=== PATIENT | female | born 1960 | race Caucasian/White ===

== ENCOUNTER 2019-09-03 18:38 | Inpatient (IN) | payer OTHER, SELFPAY ==
[~2019-09-03 18:38] MED LIST: Iopamidol-370 76% 500 ML 1 ML ONE
[2019-09-03 19:06] LABS: #Basophils 0.1 thou/uL (0.0-0.2); #Lymphocytes 1.8 thou/uL (1.20-3.40); #Monocytes 0.6 thou/uL (0.11-0.59); #Neutrophils 5.2 thou/uL (1.40-6.50); %Basophils 0.6 % (0.0-1.0); %Eosinophils 0.4 % (0.0-10.0); %Lymphocytes 23.4 % (21.0-51.0); %Monocytes 8.1 % (0.0-10.0); %Neutrophils 67.5 % (42.0-75.0); Hemoglobin 13.1 g/dL (12.0-16.0); Mean Corpuscular HGB CONC 33.5 g/dL (32.0-36.0); Mean Corpuscular Hemoglobin 29.1 pg (27.0-31.0); Mean Corpuscular Volume 86.9 fL (78.0-98.0); Mean Platelet Volume 6.3 fL (7.4-10.4); Platelet Count 273 thou/uL (130-400); RBC Distribution Width 11.9 % (11.5-14.5); Red Blood Cell (RBC) Count 4.51 mill/uL (4.20-5.40); White Blood Cell (WBC) Count 7.8 thou/uL (4.8-10.8)
[2019-09-03 19:11] LABS: INR-International Normal Ratio 0.9; PTT 25.6 SEC (22.9-36.1); Prothrombin Time 12.5 SEC (12.0-14.7)
[2019-09-03 19:21] LABS: BHCG - Serum Negative (NEGATIVE); Pregs Control Background? CLEAR/WHITE (CLR/WHITE); Pregs Control Bar Appear? YES (CONTROL BAR)
[2019-09-03 19:25] LABS: ALT (SGPT) 18 U/L (8-55); AST (SGOT) 18 U/L (5-34); Albumin 4.4 g/dL (3.5-5.0); Alcohol 105 mg/dL (Less than 10); Alkaline Phosphatase 56 U/L (40-110); Anion Gap 13 mmol/L (10-20); BUN (Urea Nitrogen) 14 mg/dL (9.8-20.1); Bilirubin, Total 0.4 mg/dL (0.2-1.2); Calc. Creatinine Clearance 0 mL/min (70-130); Calcium 9.3 mg/dL (7.8-10.44); Carbon Dioxide 22 mmol/L (22-29); Chloride 107 mmol/L (98-107); Estimated GFR-MDRD Greater than 90; Globulin 2.6 g/dL (2.4-3.5); Glucose 110 mg/dL (70-105); Potassium 3.4 mmol/L (3.5-5.1); Sodium 139 mmol/L (136-145)
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
[2019-09-03] MEDS ORDERED: Ondansetron PF 4 MG/2 ML Vial ONE (19:51)
[2019-09-03] MEDS ORDERED: Morphine 4 MG/ML VIAL ONE (19:51)
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
[2019-09-03] MEDS ORDERED: Adacel (T-DAP) 0.5 ML SYRINGE ONE (20:02)
[2019-09-03 20:25] LABS: Magnesium 1.8 mg/dL (1.6-2.6); Phosphorus 2.4 mg/dL (2.3-4.7)
[2019-09-03] MEDS ORDERED: Dextrose 50% Abboject 50 ML SYRINGE SLOW IVP PRN (20:30)
[2019-09-03] MEDS ORDERED: Dextrose 5% in Water 1,000 ML IV PRN (20:30)
[2019-09-03] MEDS ORDERED: hydrALAZINE 20 MG/ML VIAL SLOW IVP PRN (20:30)
[2019-09-03] MEDS ORDERED: Ondansetron PF 4 MG/2 ML Vial IVP PRN (20:30)
[2019-09-03] MEDS ORDERED: Magnesium 2 GM/50 ML 2 GM in Premix Bag 1 BAG IVPB SCH (20:45)
[2019-09-03] MEDS ORDERED: Potassium Phosphate 15 MMOL in Sodium Chloride 0.9% 250 ML 250 ML IVPB SCH (20:45)
[2019-09-03] MEDS ORDERED: Famotidine/PF 20 mg/2ml Vial SLOW IVP SCH (21:00)
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
[2019-09-03] MEDS ORDERED: Lidocaine 1% (PF) 30 ML VIAL SC SCH (22:15)
[2019-09-03] MEDS: Morphine 2 MG/ML SYRINGE SLOW IVP PRN (22:16)
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
[2019-09-03] MEDS: Sodium Chloride 0.9% 1,000 ML IV SCH (22:18)
[2019-09-03] MEDS: Acetaminophen 500 MG TAB PO SCH (23:16)
[2019-09-04] MEDS: Morphine 2 MG/ML SYRINGE SLOW IVP PRN ×3 (00:10→05:05)
[2019-09-04 00:52] VITALS: BMI 25.2
[2019-09-04 02:49] LABS: Amphetamine Detected (NotDetected); Barbiturates Screen Not Detected (NotDetected); Benzodiazepine Screen Not Detected (NotDetected); Cocaine Metabolite Screen Not Detected (NotDetected); Medtox Control Line Valid? VALID (VALID); Medtox Reader # READER 4; Methadone Not Detected (NotDetected); Methamphetamine Not Detected (NotDetected); Opiate Screen Not Detected (NotDetected); Oxycodone Screen Not Detected (NotDetected); Phencyclidine (PCP) Not Detected (NotDetected); THC/Cannabinoid Screen Not Detected (NotDetected); Tricyclic Screen Not Detected (NotDetected)
[2019-09-04 03:59] LABS: #Lymphocytes 1.4 thou/uL (1.20-3.40); %Basophils 0.1 % (0.0-1.0); %Eosinophils 0.1 % (0.0-10.0); %Lymphocytes 12.3 % (21.0-51.0); %Monocytes 8.8 % (0.0-10.0); %Neutrophils 78.6 % (42.0-75.0); Hemoglobin 12.4 g/dL (12.0-16.0); Mean Corpuscular HGB CONC 33.1 g/dL (32.0-36.0); Mean Corpuscular Hemoglobin 28.7 pg (27.0-31.0); Mean Corpuscular Volume 86.7 fL (78.0-98.0); Mean Platelet Volume 6.4 fL (7.4-10.4); Platelet Count 247 thou/uL (130-400); White Blood Cell (WBC) Count 11.4 thou/uL (4.8-10.8)
[2019-09-04 04:29] LABS: Anion Gap 14 mmol/L (10-20); BUN (Urea Nitrogen) 11 mg/dL (9.8-20.1); Calc. Creatinine Clearance 116 mL/min (70-130); Calcium 8.4 mg/dL (7.8-10.44); Carbon Dioxide 22 mmol/L (22-29); Chloride 106 mmol/L (98-107); Estimated GFR-MDRD Greater than 90; Glucose 93 mg/dL (70-105); Magnesium 2.1 mg/dL (1.6-2.6); Phosphorus 4.3 mg/dL (2.3-4.7); Sodium 138 mmol/L (136-145)
[2019-09-04] MEDS: Acetaminophen 500 MG TAB PO SCH (05:05)
[2019-09-04] MEDS: Sodium Chloride 0.9% 1,000 ML IV SCH (05:05)
--- NOTE | 2019-09-04 07:28 | CT ---
PRELIMINARY REPORT/[facility]/EMERGENCY AFTER HOURS PROCEDURE: Exam: Unenhanced CT brain. History: Followup subdural hematoma. Comparison: September 03, 2019 Findings: Facial soft tissue swelling is present. Right sided subdural hematoma is not appreciated o n current exam. There is punctate hyperdensity right frontoparietal junction also present on prior e xam, unchanged. Differential should include calcification versus small foci of hemorrhage. Impression: Subdural hematoma, not identified on current exam. Stable hyperdensity right frontoparie lindsey junction. ELECTRONICALLY SIGNED BY: Galina Mcadams MD Sep 04, 2019 5:18:00 AM CDT This report is intended for review by the ordering physician only, in accordance of law. If you recei ve this report in error, please call [facility] at [phone]. FINAL REPORT EMERGENCY AFTER HOURS CT OF THE BRAIN WITHOUT CONTRAST: COMPARISON: 09/03/2019. FINDINGS/IMPRESSION: I agree with the findings and impression given in the preliminary report per [facility] physici an. The previously seen right extra-axial blood is no longer visualized. This may have been artifactual o r have resolved since the prior examination.
[2019-09-04] MEDS ORDERED: LINACLOTIDE 145 MCG PO SCH (07:30)
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
[2019-09-04] MEDS ORDERED: Bacitracin 1 PK TOP SCH (09:00)
[2019-09-04] MEDS ORDERED: Silver Sulfadiazine 50 GM TUBE TOP SCH (09:00)
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
[2019-09-04 11:25] VITALS: TEMP 99.7
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
== END 2019-09-04 11:50 | disposition home or self-care (01) | DRG 84 ==
LOC: ERS 18:38 → IMCU/EMU 20:34
PROVIDERS: ADMIT Surgery; ATTEND Surgery
PROC: 0HQ1XZZ Repair Face Skin, External Approach (ICD-10-PCS; principal; 2019-09-03)
DX: S06.5X9A Traumatic subdural hemorrhage with loss of consciousness of unspecified duration, initial encounter (principal); S02.2XXA Fracture of nasal bones, initial encounter for closed fracture; R40.2413 Glasgow coma scale score 13-15, at hospital admission; S30.811A Abrasion of abdominal wall, initial encounter; S01.81XA Laceration without foreign body of other part of head, initial encounter; S01.111A Laceration without foreign body of right eyelid and periocular area, initial encounter; S80.211A Abrasion, right knee, initial encounter; E87.6 Hypokalemia; F10.129 Alcohol abuse with intoxication, unspecified; N83.209 Unspecified ovarian cyst, unspecified side; R91.8 Other nonspecific abnormal finding of lung field; K40.90 Unilateral inguinal hernia, without obstruction or gangrene, not specified as recurrent; V29.00XA Motorcycle driver injured in collision with unspecified motor vehicles in nontraffic accident, initial encounter; Z98.51 Tubal ligation status; Z87.891 Personal history of nicotine dependence
CPT/HCPCS: 36415; 70450; 70486; 71045; 71260; 72125; 74177; 80048; 80053; 80306; 80307; 83605; 83735; 84100; 84703; 85025; 85610; 85730; 90471; 90715; 93005; 96361; 96374; 96375; G0390; J2270; J2405; J3475; J7050; Q9967; S0028